=== PATIENT | male | born 1990 | race Caucasian/White ===

== ENCOUNTER 2018-07-05 12:42 | Day surgery (SDC) | payer BC ==
--- NOTE | 2018-07-05 12:50 | PDGENHP ---
History and Physical - Chief Complaint Left Hip Pain - History of Present Illness 1. Bilateral~Femoroacetabular impingement (SULEMA) Cam type,~with~resultant labral tear; LEFT Side symptomatic 2. Left~Borderline~Hip Dyplasia 3. ~~Femur~retrotorsion~- Clinical~ 4. History of Left Hip arthroscopy HISTORY OF PRESENT ILLNESS: Rcis a 27 y.o.~very~~active male~who I have had the pleasure to consult on today. 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 ~Rcenjoys ice hockey ([employer]), golf. Shorty's~left~hip pain~started a couple of weeks ago, with~no~recalled trauma or injury, and with no~previous complaints. Rcdoes not have~a known history of hip dysplasia. Presentation today is of~anterior~left~hip pain. ~The hip~does~wake him~at night and does~click.~~Sitting can be uncomfortable~for him.~Rcdoes not~ report suffering from lower back pain episodes. Rchas not~participated in physical therapy and has not~tried other conservative measures.~ Rchas~utilized medication for pain management, including NSAID.~Rchas used medication since the pain began. Rcdenies issues with the right~hip. ~ Rcunderstands that he~has a hip and pelvis problem which should be researched and wishes to get a better understanding of his~hip status, followed by an establishment of a treatment strategy, hoping he~would be able to get back to his~well being active life. History: Past medical history:~~ None which is relevant~ Relevant familial history:~None which is relevant~ Past surgical history:~ No. Surgery Anesthesia 1 Right shoulder scope x2 general Rcdenies problematic issues with general anesthesia in the past. I have reviewed, verified and agree with the past medical, surgical, family and social history. Current Medications:~has a current medication list which includes the following prescription(s): acetaminophen and ibuprofen. ALLERGIES:~has No Known Allergies. Objective: Physical Examination: Shorty~is 5~feet 9~inches tall and weighs 175~Lbs. Shorty~is AAO x3; he~is well- nourished, in NAD. Skin is warm and dry. ~Breathing is non-labored. ~CV with RRR by pulse. Abdomen is soft, NTND. Currently,~he~walks with a normal~gait. Trendelenburg sign is~negative~and proprioception is normal,~both~sides. He~presents with mild~signs of joint laxity. Beightons Score:~4 Lower spine examination is~negative~for sciatic or femoral nerve irritation with negative~SLR &~femoral stretch tests. Range of motion of the spine is normal~for flexion, extension, and rotations, with no~associated pain. Strength, Sensation and pulses are~normal -~bilaterally Ankles and knees exams are~normal~and no~mal-alignment is evident. He~has no leg length discrepancy. Thigh circumference is~asymmetric~with low~muscle atrophy~on left~side. Hip ROM (degrees): FL ER At 90~hip FL IR At 90~hip FL AB AD EX IR Neutral hip ER Neutral hip R 95 45 10 40 5 10 25 45 L 95 55 5 40 0 10 20 40 Specific hip and pelvis tests: Quadrant SHARON Roll Add. Longus R + + Negative ++ L +++ +++ + + Glut. Med ITB Pos. Imp R Negative 5/5 strength Negative 5/5 strength Negative L Negative 5/5 strength Negative 5/5 strength Negative Squeeze test measured~normal Bony Symphysis pubis is~pain free~to touch while concentric activity of the rectus abdominis,~does~produce pain at its insertion. LEFT SIDE Ilio Psos specific tests are~negative for pain during cycling for~both hips~and remarkable for non painful snap HF has~pain, no weakness~the left hip. Anterior~capsule tenderness LEFT Greater trochanteric burse is~pain free~on both hips. Piriformis tests: FAIR is~negative,~with no~local signs of neuritis related to sciatic nerve. SIJs examination is~normal~with normal~SHARON in relation and local tenderness. Hamstrings tests are~negative~functional contraction and negative~tendinopathy both hips. Imaging: Radiology studies which I have personally reviewed, analyzed and measured are below: XR: AP of the hip and pelvis: Performed in a~good~technique Coccyx~at level~pubic symphysis 10~degrees caudal [place] Lines are~preserved. Minimal~Pathological signs are seen in the Symphysis Pubis. Minimal~Pathological signs are seen at the Ischial tuberosity. ~ Specific measurements show: NSA~ LCE Sourcil~Angle Sharp's angle Lat. Cam Lat. Pincer C.Over~sign Head~Coverage % ATDmm R N 31 7 40 + - 12-1 N N L N 20 11 43 ++ - 12-1 74 N Large Os-acetabuli Left side. Pos. wall sign ISS NAD ~~Dysplasia Comments R Negative Negative 11.3~mm Negative L Negative Negative 11.2~mm ++ Sclerosis Sup. Lat. OA Cysts Joint Space-WBZ Joint Space-Medial R Negative Negative Negative 4.6~mm 4.2~mm L ++ ++ Acetabular OS 5.7~mm 4.7~mm X Table lateral: Anterior cam lesion is~seen~on both hips. Alpha Angle: ~ Right~70~dergrees Left~89~degrees Impression and plan:~ Shorty~is a 27 y.o.~active male~suffering from symptomatic left~hip pain due to Bilateral~Femoroacetabular impingement (SULEMA) Cam type,~with~resultant labral tear and~Left~Hip BL~Dyplasia~causing significant disability to him~and altering his~sport and life activities. Physical examination, imaging, and~his~story correspond with the diagnosis mentioned above. I explained that femoroacetabular impingement (SULEMA) arises due to a bony or soft tissue conflict between the femur (ball) and acetabulum (socket) caused by an abnormality in the shape of the hip joint. Over time, repetitive impingement can result in damage to the labrum and adjacent surface cartilage within the socket, ultimately giving rise to progressive osteoarthritis of the hip. I explained that although a labral tear can be a source of pain, it is rarely the root of the problem and typically occurs secondary to an underlying abnormality in the shape and mechanics of the hip joint. ~ I reviewed conservative treatment options for SULEMA including activity modification to avoid positions of impingement, physical therapy, non-steroidal anti-inflammatory medications, and various injections (corticosteroid and PRP) aimed at reducing inflammation in the hip joint or/and preventing dynamic impingement. PRP injections may promote healing and reduce symptoms in certain cases but it will not repair chronically damaged tissue. Although these measures may help to buy time and reduce current level of symptoms, they are not a definitive solution to the problem given the underlying abnormality in the shape of the hip joint. Patients who have failed conservative management and continue to experience symptoms are candidates for hip arthroscopy, a minimally invasive surgery that can definitively address the underlying problem. Hip arthroscopy typically includes treating the labrum with either repair or reconstruction of the torn labrum; as well as addressing the underlying abnormalities by restoring the normal shape to the hip joint. ~If the cartilage is damaged a Microfracture surgical procedure may also be necessary to help stimulate the growth of fibrocartilage. ~If a patient requires a labral reconstruction or a Microfracture, the initial rehabilitation from the surgery may take longer, but the intermediate card tender results are typically favorable. I reviewed the technical aspects of hip arthroscopy including risks, benefits, and expected course of recovery.~Rcunderstands that hip arthroscopy is a minimally invasive outpatient procedure carried out through small incisions on the outer aspect of the hip joint. During surgery, the labral tear will be identified and either repaired or reconstructed~using bone anchors and suture material. Additionally, any excessive bone will be removed with a high-speed candace to reshape the hip joint and restore normal anatomy. Risks include infection, bleeding, injury to nearby nerves or vessels, stiffness, persistent pain, instability, venous thromboembolic disease, and traction related complications including temporary foot numbness. Rarely, revision surgery may be required to address these problems. Overall recovery takes approximately 4~ 8~months depending on the extent of damage and degree of repair. In the event that the labral tissue quality is inadequate for successful repair and healing,~Rcunderstands that a labral reconstruction will be performed. This procedure entails placing a cadaver tissue graft within the hip joint and stabilizing it with bone anchors to build a new labrum. The overall recovery time for labral reconstruction is similar to that of labral repair, although the surgical procedure takes longer to perform. He present with a unique combination of clinical and radiographic charcteristics. - under-coevrage due to BL/Remigio Hip dysplasia per LCE - Retro-torsion of femur per ROM, which is protective for his under-coverage - Very large Cam lesion L>R, OS-acetabuli It is reasonable to conclude that with this combination Hip arthroscopy will be a good first line of surgical treatment. ROBERTO CARLOS/DFO would be discussed only if scope alone doesn't yield good custodial outcome. Rcwill review the info presented. In order to obtain more detailed information regarding the alignment, orientation, and shape of the bony hip and pelvis I will order a CT scan to be performed. The results of the CT scan, including femoral torsion and acetabular version measured values and 3D images, will aid me in deciding on the best treatment strategy and surgical pre-planning. Rcwill contact us if he~wishes to pursue further treatment in the future. Rcis happy with this plan. I have also supplied~him~with handouts, outlining the expected surgical treatment and rehab involved. I wish~Rcall the best, ~~ Werner Norman, PAC History Information - Allergies/Home Medication List Allergies/Adverse Reactions: No Known Allergies Allergy (Verified 07/04/18 13:03) Home Medications: NK [No Known Home Meds] 07/04/18 [Last Taken Unknown] I have personally reviewed and updated: medical history - Social History Smoking Status: Never smoked Review of Systems Review of Systems: Physical Exam Physical Exam:
[2018-07-05] MEDS ORDERED: ceFAZolin 2 GM/DEXTROSE 100 ML IV ONE (13:11)
[2018-07-05] MEDS ORDERED: PREGABALIN 150 MG CAP PO ONE (13:11)
[2018-07-05] MEDS ORDERED: ACETAMINOPHEN 500 MG TAB PO ONE (13:11)
[2018-07-05] MEDS ORDERED: LR 1,000 ML IV ONE (13:12)
--- NOTE | 2018-07-05 14:40 | PDANEPAE ---
ANE History of Present Illness HIP ARTHROSCOPY, L ANE Past Medical History - Cardiovascular History Hx Hypertension: No Hx Arrhythmias: No Hx Chest Pain: No Hx Coronary Artery / Peripheral Vascular Disease: No Hx CHF / Valvular Disease: No Hx Palpitations: No - Pulmonary History Hx COPD: No Hx Asthma/Reactive Airway Disease: No Hx Recent Upper Respiratory Infection: No Hx Oxygen in Use at Home: No Hx Sleep Apnea: No Sleep Apnea Screening Result - Last Documented: Negative - Neurologic History Hx Cerebrovascular Accident: No Hx Seizures: No Hx Dementia: No - Endocrine History Hx Diabetes: No Hypothyroid: No Hyperthyroid: No Obesity: no - Renal History Hx Renal Disorders: Yes Renal History Comment: hx kidney stones - Liver History Hx Hepatic Disorders: No - Neurological & Psychiatric Hx Hx Neurological and Psychiatric Disorders: No - Cancer History Hx Cancer: No - Congenital Disorder History Hx Congenital Disorders: No - GI History GERD: no Hx Gastrointestinal Disorders: No - Other Health History Other Health History: wears glasses/contacts. intermittent eczema - nothing currently - Chronic Pain History Chronic Pain: No - Surgical History Prior Surgeries: left hip scope 11/2017. right shoulder scope x2, 2010 & 2015 ANE Review of Systems Review of Systems: - Exercise capacity METS (RN): 6 METS ANE Patient History - Allergies Allergies/Adverse Reactions: No Known Allergies Allergy (Verified 07/04/18 13:03) - Home Medications Home Medications: NK [No Known Home Meds] 07/04/18 [Last Taken Unknown] - NPO status NPO Since - Liquids (Date): 07/05/18 NPO Since - Liquids (Time): 11:29 NPO Since - Solids (Date): 07/04/18 NPO Since - Solids (Time): 21:00 - Anes Hx Anes Hx: no prior problems - Smoking Hx Smoking Status: Never smoked Marijuana use: Yes - Alcohol Use Alcohol Use: Other (2 Drinks/week) - Family Anes Hx Family Hx Anesthesia Complications: none ANE Labs/Vital Signs - Vital Signs Blood Pressure: 147/83 Heart Rate: 73 Respiratory Rate: 14 O2 Sat (%): 96 Height: 175.26 cm Weight: 74.843 kg ANE Physical Exam - Airway Neck exam: FROM Mallampati Score: Class 2 Mouth exam: normal dental/mouth exam - Pulmonary Pulmonary: clear to auscultation - Cardiovascular Cardiovascular: regular rate and rhythym (j) - ASA Status ASA Status: II ANE Anesthesia Plan Anesthesia Plan: general endotracheal anesthesia
[2018-07-05] MEDS ORDERED: MIDAZOLAM 2 MG/2 ML VIAL IVP ONE (14:41)
[2018-07-05] MEDS ORDERED: fentaNYL 250 MCG/5 ML INJ ONE (14:49)
[2018-07-05] MEDS ORDERED: PROPOFOL 200 MG/20 ML VIAL ONE (14:50)
[2018-07-05] MEDS ORDERED: ROCURONIUM 50 MG/5 ML VIAL ONE (14:51)
[2018-07-05] MEDS ORDERED: DEXAMETHASONE 4 MG/ML VIAL ONE (14:51)
[2018-07-05] MEDS ORDERED: EPINEPHrine 30 MG/30 ML MDV (0.1 MG/0.1 ML) ONE (15:00)
[2018-07-05] MEDS ORDERED: BUPIVACAINE 0.25% 30 ML SDV ONE (15:01)
[2018-07-05] MEDS ORDERED: ePHEDrine SULFATE 25 MG/5 ML SYR ONE (16:36)
[2018-07-05] MEDS ORDERED: ONDANSETRON 4 MG/2 ML VIAL ONE (17:27)
[2018-07-05] MEDS ORDERED: fentaNYL 100 MCG/2 ML INJ ONE ×2 (17:36→18:25)
--- NOTE | 2018-07-05 18:11 | POSTANESTH ---
Post Anesthetic Evaluation Cardiovascular Status: Normal, Stable Respiratory Status: Normal, Stable Level of Consciousness/Mental Status: Can Participate in Eval Pain Control: Adequate, Prn Tx Ordered Nausea/Vomiting Control: Adequate, Prn Tx Ordered Complications Possibly Related to Anesthesia: None Noted
[2018-07-05] MEDS: fentaNYL 100 MCG/2 ML INJ IVP PRN ×2 (18:30→18:40)
[2018-07-05] MEDS ORDERED: ONDANSETRON 4 MG/2 ML VIAL IVP PRN (18:31)
[2018-07-05] MEDS ORDERED: OXYCODONE/APAP 5/325 TAB ONE (18:31)
[2018-07-05] MEDS ORDERED: NALOXONE HCL 0.4 MG/ML INJ IVP PRN (18:31)
[2018-07-05] MEDS ORDERED: oxyCODONE IR 5 MG TAB ONE (18:38)
[2018-07-05] MEDS: oxyCODONE IR 5 MG TAB PO PRN ×2 (18:40→18:56)
[2018-07-05 19:58] VITALS: BP 128/83
== END 2018-07-05 20:00 | disposition home or self-care (01) ==
LOC: FSGY 12:42
PROVIDERS: ATTEND Orthopaedic Surgery Sports Medicine
DX: M25.852 Other specified joint disorders, left hip (principal); S73.192A Other sprain of left hip, initial encounter; Q65.89 Other specified congenital deformities of hip
CPT/HCPCS: C1713; J0171; J0690; J1100; J2250; J2405; J2704; J3010